=== PATIENT | female | born 1955 | race Caucasian/White ===

== ENCOUNTER → 2016-12-18 | Outpatient (CLI) | payer BC, OTHER ==
[~2016-12-18] MED LIST: AMB5 PO; ATR25 PO; CALCIUM/MAG/ZINC PO; CMDUNK PO; MULT-506 PO; OMEG10007 PO; OXYSRUNK PO; PRCUNK PO; SUPER B COMPLEX PO; SYN88 PO; TOPI100T20 PO; TOPI200T14 PO; TRIPLEFLEX PO; XENICAL PO; XNX25 PO; [UNRECOGNIZED DRUG - OTHER] PO
[2016-12-18 18:10] LABS: BASO % 0.7 %; BASO ABS # 0.05 K/uL (0-0.2); COMPLETE YES; HEMATOCRIT 39.2 % (37-47); IG% 0.1 %; LYMPH % 36.9 %; LYMPH ABS # 2.79 K/uL (1.2-3.4); MEAN CELL VOLUME 82.7 fL (80-100); MEAN CORPUSCULAR HEMOGLOBIN 24.9 pg (25-34); MEAN CORPUSCULAR HGB CONC 30.1 g/dl (32-36); MEAN PLATELET VOLUME 11.5 fL (7.4-10.4); MONO % 9.5 %; NEUT % 50.8 %; PLATELET COUNT 299 K/uL (130-400); RED BLOOD COUNT 4.74 M/uL (4.2-5.4); WHITE BLOOD COUNT 7.57 K/uL (4.8-10.8)
[2016-12-18 18:18] LABS: ALT/SGPT 17 U/L (12-78); AST/SGOT 16 U/L (15-37); BLOOD UREA NITROGEN 15 mg/dl (7-18); BUN/CREATININE RATIO 29.9 (10-20); CALCIUM 8.6 mg/dl (8.5-10.1); CARBON DIOXIDE 29 mmol/L (21-32); CHLORIDE 107 mmol/L (98-107); CREATININE 0.51 mg/dl (0.60-1.20); GLUCOSE 85 mg/dl (70-99); POTASSIUM 4.2 mmol/L (3.5-5.1); SODIUM 143 mmol/L (136-145)
[2016-12-18 18:29] LABS: ALB/GLOB RATIO 0.8 (0.9-2); ALKALINE PHOSPHATASE 67 U/L (45-117)
[2016-12-18 19:04] LABS: LYME DISEASE AB IGM NEG (NEG)
[2016-12-18 19:05] LABS: LYME DISEASE AB IGG NEG (NEG)
== END | disposition home or self-care (01) ==
LOC: C.LABSPEC 17:48
PROVIDERS: ATTEND Family Medicine
DX: E03.9 Hypothyroidism, unspecified (principal)

== ENCOUNTER → 2017-01-22 | Outpatient (CLI) | payer OTHER ==
[2017-01-22 14:07] LABS: HEMATOCRIT 38.9 % (37-47); MEAN CELL VOLUME 81.4 fL (80-100); MEAN CORPUSCULAR HEMOGLOBIN 24.9 pg (25-34); MEAN CORPUSCULAR HGB CONC 30.6 g/dl (32-36); MEAN PLATELET VOLUME 11.2 fL (7.4-10.4); PLATELET COUNT 274 K/uL (130-400); RED BLOOD COUNT 4.78 M/uL (4.2-5.4); WHITE BLOOD COUNT 5.37 K/uL (4.8-10.8)
[2017-01-22 14:42] LABS: BASOPHIL % 1.8 %; LYMPH ABS # 2.59 K/uL (1.2-3.4); LYMPHOCYTE % 48.2 %; NEUTROPHILS % 48.2 %
[2017-01-22 15:07] LABS: ALT/SGPT 19 U/L (12-78); AMYLASE 43 U/L (25-115); AST/SGOT 16 U/L (15-37); BLOOD UREA NITROGEN 12 mg/dl (7-18); BUN/CREATININE RATIO 18.9 (10-20); CALCIUM 8.9 mg/dl (8.5-10.1); CARBON DIOXIDE 27 mmol/L (21-32); CHLORIDE 109 mmol/L (98-107); CREATININE 0.62 mg/dl (0.60-1.20); GLUCOSE 96 mg/dl (70-99); POTASSIUM 4.2 mmol/L (3.5-5.1); SODIUM 143 mmol/L (136-145)
[2017-01-22 15:09] LABS: ALB/GLOB RATIO 0.9 (0.9-2); ALKALINE PHOSPHATASE 74 U/L (45-117)
== END | disposition home or self-care (01) ==
LOC: C.LABSPEC 13:30
PROVIDERS: ATTEND Family Medicine
DX: R10.12 Left upper quadrant pain (principal)

== ENCOUNTER → 2017-07-13 | Outpatient (CLI) | payer OTHER, BC ==
[~2017-07-13] MED LIST changes: -AMB5 PO; -ATR25 PO; -CALCIUM/MAG/ZINC PO; -CMDUNK PO; +LEVO88TA PO; -MULT-506 PO; -OMEG10007 PO; -OXYSRUNK PO; +PANT40TA PO; -PRCUNK PO; -SUPER B COMPLEX PO; -SYN88 PO; -TOPI100T20 PO; -TOPI200T14 PO; -TRIPLEFLEX PO; +TURM1CAP PO; +XANAX PO; -XENICAL PO; -XNX25 PO; -[UNRECOGNIZED DRUG - OTHER] PO
[2017-07-13 18:59] LABS: BASO % 0.6 %; BASO ABS # 0.05 K/uL (0-0.2); EOS % 1.1 %; EOS ABS # 0.09 K/uL (0-0.5); IG# 0.02 K/uL (0.00-0.02); LYMPH % 31.4 %; LYMPH ABS # 2.62 K/uL (1.2-3.4); MEAN CELL VOLUME 74.3 fL (80-100); MEAN CORPUSCULAR HEMOGLOBIN 24.2 pg (25-34); MEAN CORPUSCULAR HGB CONC 32.5 g/dl (32-36); MEAN PLATELET VOLUME 10.8 fL (7.4-10.4); MONO % 9.5 %; MONO ABS # 0.79 K/uL (0.11-0.59); NEUT % 57.2 %; NEUT ABS # 4.78 K/uL (1.4-6.5); PLATELET COUNT 279 K/uL (130-400); RED CELL DISTRIBUTION WIDTH CV 18.6 % (11.5-14.5); RED CELL DISTRIBUTION WIDTH SD 50.6 fL (36.4-46.3); WHITE BLOOD COUNT 8.35 K/uL (4.8-10.8)
[2017-07-13 19:16] LABS: ALBUMIN 3.5 gm/dl (3.4-5.0); ALT/SGPT 38 U/L (12-78); AST/SGOT 28 U/L (15-37); BLOOD UREA NITROGEN 16 mg/dl (7-18); CALCIUM 9.4 mg/dl (8.5-10.1); CARBON DIOXIDE 24 mmol/L (21-32); CREATININE 0.82 mg/dl (0.60-1.20); GLUCOSE 135 mg/dl (70-99); POTASSIUM 3.8 mmol/L (3.5-5.1); SODIUM 139 mmol/L (136-145)
[2017-07-13 19:27] LABS: ALKALINE PHOSPHATASE 85 U/L (45-117)
[2017-07-14 06:42] LABS: HEMOGLOBIN A1C 5.8 % (4.5-5.6)
== END | disposition home or self-care (01) ==
LOC: C.LABSPEC 18:29
PROVIDERS: ATTEND Family Medicine
DX: E03.9 Hypothyroidism, unspecified (principal); R53.83 Other fatigue

== ENCOUNTER → 2017-07-15 | Outpatient (CLI) | payer OTHER, BC ==
[2017-07-15 13:06] LABS: BASO % 0.5 %; BASO ABS # 0.04 K/uL (0-0.2); EOS % 3.4 %; EOS ABS # 0.25 K/uL (0-0.5); HEMATOCRIT 39.4 % (37-47); HEMOGLOBIN 12.8 g/dL (12.0-16.0); IG# 0.02 K/uL (0.00-0.02); LYMPH % 36.3 %; LYMPH ABS # 2.66 K/uL (1.2-3.4); MEAN CELL VOLUME 74.3 fL (80-100); MEAN CORPUSCULAR HEMOGLOBIN 24.2 pg (25-34); MEAN CORPUSCULAR HGB CONC 32.5 g/dl (32-36); MEAN PLATELET VOLUME 10.9 fL (7.4-10.4); MONO % 9.8 %; MONO ABS # 0.72 K/uL (0.11-0.59); NEUT % 49.7 %; NEUT ABS # 3.63 K/uL (1.4-6.5); PLATELET COUNT 292 K/uL (130-400); RED CELL DISTRIBUTION WIDTH CV 18.6 % (11.5-14.5); RED CELL DISTRIBUTION WIDTH SD 50.5 fL (36.4-46.3); WHITE BLOOD COUNT 7.32 K/uL (4.8-10.8)
[2017-07-15 13:23] LABS: BLOOD UREA NITROGEN 19 mg/dl (7-18); CARBON DIOXIDE 23 mmol/L (21-32); GLUCOSE 100 mg/dl (70-99); POTASSIUM 3.5 mmol/L (3.5-5.1); SODIUM 138 mmol/L (136-145)
== END | disposition home or self-care (01) ==
LOC: C.CPL 12:04
PROVIDERS: ATTEND Orthopaedic Surgery
DX: M25.512 Pain in left shoulder (principal)

== ENCOUNTER → 2017-07-30 | Day surgery (SDC) | payer OTHER, BC ==
[2017-07-09 08:52] VITALS: Ht 160 cm; Wt 72.7 kg
[~2017-07-30] VITALS: Ht 160 cm; Wt 72.7 kg
[~2017-07-30] MED LIST changes: +BUPIVACAINE 0.25% 30 ML VIAL ONE; +BUPIVACAINE 0.5 % 5 MG/1 ML MPF 30ML VIAL ONE; +CEFAZOLIN 1000MG IV PUSH 7.5 ML IV SCH; +DEXAMETHASONE SOD INJ 4 MG/ML VIAL ONE; +EpINEphrine INJ 1MG/ML AMP 1 MG/ML AMP ONE; +FENTANYL CITRATE INJ 50 MCG/1 ML 2 ML VIAL ONE; +HYDR-5688 PO; +HYDR25CA PO; +HYDROCODONE/ACETAMIN 5/325MG TAB ONE; +HYDROCODONE/ACETAMIN 5/325MG TAB PO PRN; +KETAMINE HCL INJ 50 MG/ML 10 ML VIAL ONE; +LACTATED RINGER'S 1000ML 1,000 ML IV SCH; +LIDOCAINE HCL 2% 2 ML VIAL (20MG/ML) ONE; +MIDAZOLAM HCL 1 MG/ML 2ML VIAL ONE; +ONDANSETRON INJ 2 MG/ML 2 ML VIAL IV PRN; +POTA550T4; +PROPOFOL IV EMULSION 10 MG/ML 20 ML VIAL IV ONE; +SODIUM CHLORIDE 0.9% 1000ML 1,000 ML IV SCH
--- NOTE | 2017-07-30 10:39 | History & Physical Bridge Note ---
H&P Re-Evaluation Bridge Note: I have examined the patient, reviewed the History & Physical and in the interval since the performance of the History & Physical I have noted the following changes of clinical significance: No changes noted
--- NOTE | 2017-07-30 12:56 | [facility] Post Operative Brief Note ---
Immediate Operative Summary Operative Date Jul 30, 2017. Pre-Operative Diagnosis Left Shoulder Small Rotator Cuff Tear Post-Operative Diagnosis Same Procedure(s) Performed Left Shoulder Arthroscopy With Medium Rotator Cuff Repair, Acromioplasty, Biceps Tenodesis Surgeon Dr. Kim Trolley Collector Surgeon(s) Julian Starr PA-C Estimated Blood Loss 5ml Findings Consistent with Post-Op Diagnosis Specimens None Anesthesia Type MAC Regional Complication(s) none Disposition Disposition: Recovery Room / PACU
[2017-07-30 13:05] VITALS: TEMP 36.6
--- NOTE | 2017-07-30 13:12 | Discharge Instructions-SurgCtr ---
Discharge Instructions Date of Service Jul 30, 2017. Visit Reason for Visit: Left Shoulder Full Thickness Rotator Cuff Tear Discharge Discharge Diagnosis / Problem: SAME ABOVE Discharge Goals Goal(s): Decrease discomfort, Improve function Activity Recommendations Activity Limitations: as noted below Lifting Limitations: until after follow-up appointment Exercise/Sports Limitations: until after follow-up appointment Shower/Bathe: tomorrow Anesthesia . Post Anesthesia Instructions: If you have had General Anesthesia or IV Sedation: * Do not drive today. * Resume driving when surgeon permits. * Do not make important decisions or sign legal documents today. * Call surgeon for: 1. Temperature elevations greater than 101 degrees F. 2. Uncontrollable pain. 3. Excessive bleeding. 4. Persistent nausea and vomiting. 5. Medication intolerance (nausea, vomiting or rash). * For nausea and vomiting use only clear liquids such as: tea, soda, bouillon until nausea subsides, then gradually increase diet as tolerated. * If you have any concerns or questions, call your surgeon's office. If physician is unavailable and it is an emergency, call 911 or go to the nearest emergency room. . Instructions / Follow-Up Instructions / Follow-Up MEDICATIONS: * Resume previous medications unless instructed otherwise by your surgeon. * Always take pain medication on a full stomach or with food to avoid upset stomach. * Do not drink alcohol or drive while taking narcotics. * Ibuprofen or Tylenol may be taken if narcotic not needed. SPECIAL CARE INSTRUCTIONS: __ None _X_ Keep extremity elevated and iced x 48 hours; apply ice 20-30 minutes 8-10 times/day. May remove at night. __ Sling __24 hrs/day __ Remove at night _X_ Shoulder Immobilizer (MAY REMOVE AFTER 48 HOURS ONLY TO SHOWER AND FOR THERAPY) _X_ 24 hrs/day __ Remove at night _X_ Dressing __ Maintain until seen in office, may shower with plastic over site _X_ Remove dressings in 24-48 hours and then may shower _X_ Cover incisions with band-aids after showering __ Do not remove steri-strips Call physician if chills or temperature rises above 102 degrees or pain unrelieved by prescribed pain medications at . . Diet Recommendations Home Diet: no limitations Fluid Restriction: None Procedures Procedures Performed: Left Shoulder Arthroscopy With Medium Rotator Cuff Repair, Acromioplasty, Biceps Tenodesis Pending Studies Studies pending at discharge: no Work Instructions Return To Work: after follow-up Lifting Limitations: NO LIFTING WITH LEFT ARM Medical Emergencies . Who to Call and When: Medical Emergencies: If at any time you feel your situation is an emergency, please call 911 immediately. . Non-Emergent Contact Non-Emergency issues call your: Primary Care Provider Call Non-Emergent contact if: you have a fever, temperature is above 101.5 . . "Provider Documentation" section prepared by Baldev Starr. .
--- NOTE | 2017-07-30 13:21 | Anesthesia Progress Nt - [facility] ---
Anesthesia Post Op Note Date & Time Jul 30, 2017 at 13:21 Vital Signs Pain Intensity: 4 Vital Signs Past 12 Hours Date Time Temp Pulse Resp B/P (MAP) Pulse Ox O2 Delivery O2 Flow Rate FiO2 07/30/17 13:05 36.6 69 16 139/73 (95) 97 Room Air 07/30/17 11:50 74 14 100 07/30/17 11:50 74 07/30/17 11:49 75 07/30/17 11:49 76 19 100 07/30/17 11:48 77 18 100 07/30/17 11:48 77 07/30/17 11:47 80 07/30/17 11:47 76 23 100 07/30/17 11:46 124/67 07/30/17 11:43 67 07/30/17 11:43 68 39 100 07/30/17 11:42 128/59 07/30/17 11:38 58 07/30/17 11:38 59 44 97 07/30/17 11:37 60 07/30/17 11:37 60 0 98 07/30/17 11:36 148/78 07/30/17 11:35 56 0 97 07/30/17 11:35 55 07/30/17 11:32 129/56 07/30/17 11:30 56 0 97 07/30/17 11:30 54 07/30/17 11:26 134/62 07/30/17 11:25 56 0 100 07/30/17 11:25 56 07/30/17 11:20 0 07/30/17 11:15 0 07/30/17 11:10 0 07/30/17 11:05 0 07/30/17 10:46 36.7 57 20 116/78 (91) 97 Room Air Notes Mental Status: alert / awake / arousable, participated in evaluation Pt Amnestic to Procedure: Yes Nausea / Vomiting: adequately controlled Pain: adequately controlled Airway Patency, RR, SpO2: stable & adequate BP & HR: stable & adequate Hydration State: stable & adequate Anesthetic Complications: no major complications apparent Block working well in pacu
[2017-07-30 13:55] VITALS: BP 118/73; O2SAT 100
--- NOTE | 2017-07-30 14:35 | OPERATIVE REPORT ---
DATE OF OPERATION: 07/30/2017 PREOPERATIVE DIAGNOSIS: Medium sized left rotator cuff tear. POSTOPERATIVE DIAGNOSES: Medium sized rotator cuff tear with severe external impingement, biceps tendinopathy. PROCEDURE: Left shoulder diagnostic arthroscopy with limited debridement, distal clavicle resection, acromioplasty, medium size rotator cuff repair and arthroscopic biceps tenodesis. SURGEON: Dr. Ag Kim. INJECTION PRESS OPERATOR: Pelon Starr PA-C, whose assistance was necessary for positioning the arm and help with instrumentation. ANESTHESIA: Sedation with a left interscalene nerve block. COMPLICATIONS: None. CONDITION: Stable to PACU. INDICATIONS: Rocío is a pleasant 61-year-old female who has been having a several month history of left shoulder pain. She denies any trauma. MRI and clinical examination were diagnostic for severe external impingement with medium size cuff tear. After failing conservative treatment, she elected to undergo arthroscopy. DESCRIPTION OF PROCEDURE: On 07/30/2017, she arrived at [facility] for the above procedure. She was seen in preoperative holding and the operative extremity was identified and signed. She was given a preoperative antibiotic and a left interscalene nerve block. She was taken back to the operating room, laid on the table in supine position and given basic sedation. She was then put into the beachchair position. The left shoulder was prepped and draped in sterile fashion. Time-out was done. The patient was properly identified. A scope was introduced in the posterior portal. Diagnostic arthroscopy showed no cartilage damage to the humeral head or glenoid. There was some fraying of the anterior labrum. There was significant fraying of the long head of the biceps tendon. There was a tear of the supraspinatus. The infraspinatus, teres minor, and subscapularis were all checked and intact. An anterior portal was made. A shaver was used to do a limited debridement of the intraarticular structures and the long head of the biceps tendon was arthroscopically tenotomized for later tenodesis. The scope was then put into the subacromial space. A lateral portal was made. A shaver was used to do a complete subacromial and subdeltoid bursectomy. An ablator was used to tease the coracoacromial ligament off the undersurface of the acromion and a 5-0 yoli was used to complete an acromioplasty of a large Bigliani type 3 acromion. A shaver was used to remove any excess debris and attention was turned to the distal clavicle. There were large inferior osteophytes off the undersurface of the clavicle that were impinging upon the supraspinatus outlet. A 5-0 yoli was used to cope co-plane the undersurface of the clavicle. This opened up the supraspinatus outlet. Attention was then turned to the rotator cuff. An additional anterolateral portal was made and Ginger cannulas were placed in each of the lateral portals. The greater tuberosity was prepared with a ring curette and a microfracture. The rotator cuff was then fixed with an Arthrex SpeedBridge configuration using BioComposite SwiveLock suture anchors and FiberTapes. This gave nice fixation. The long head of the biceps tendon was tagged earlier with a FiberLink suture and incorporated into the anterior medial anchor to complete an arthroscopic biceps tenodesis. Multiple pictures were taken. The scope was placed back into the glenohumeral joint and the articular margin of the rotator cuff had been restored. Pictures were taken. Arthroscopic instruments were removed from the shoulder. Portal sites were closed with 3-0 nylon. She was then placed in a soft dressing and an abduction arm sling. She was then extubated, transferred to a litter and taken to the procedure. She carries stable condition. She tolerated the procedure well. I attest to the content of the Intraoperative Record and any orders documented therein. Any exception s are noted below.
== END | disposition home or self-care (01) ==
LOC: X.SURG 10:35
PROVIDERS: ATTEND Orthopaedic Surgery
DX: M75.102 Unspecified rotator cuff tear or rupture of left shoulder, not specified as traumatic (principal); M25.812 Other specified joint disorders, left shoulder; M75.22 Bicipital tendinitis, left shoulder; F32.9 Major depressive disorder, single episode, unspecified; Z82.49 Family history of ischemic heart disease and other diseases of the circulatory system; Z82.3 Family history of stroke; Z80.49 Family history of malignant neoplasm of other genital organs

== ENCOUNTER → 2017-08-31 | Outpatient (CLI) | payer OTHER, BC ==
[~2017-08-31] MED LIST changes: -BUPIVACAINE 0.25% 30 ML VIAL ONE; -BUPIVACAINE 0.5 % 5 MG/1 ML MPF 30ML VIAL ONE; -CEFAZOLIN 1000MG IV PUSH 7.5 ML IV SCH; -DEXAMETHASONE SOD INJ 4 MG/ML VIAL ONE; -EpINEphrine INJ 1MG/ML AMP 1 MG/ML AMP ONE; -FENTANYL CITRATE INJ 50 MCG/1 ML 2 ML VIAL ONE; -HYDROCODONE/ACETAMIN 5/325MG TAB ONE; -HYDROCODONE/ACETAMIN 5/325MG TAB PO PRN; -KETAMINE HCL INJ 50 MG/ML 10 ML VIAL ONE; -LACTATED RINGER'S 1000ML 1,000 ML IV SCH; -LIDOCAINE HCL 2% 2 ML VIAL (20MG/ML) ONE; -MIDAZOLAM HCL 1 MG/ML 2ML VIAL ONE; -ONDANSETRON INJ 2 MG/ML 2 ML VIAL IV PRN; -PROPOFOL IV EMULSION 10 MG/ML 20 ML VIAL IV ONE; -SODIUM CHLORIDE 0.9% 1000ML 1,000 ML IV SCH
== END | disposition home or self-care (01) ==
LOC: C.LABSPEC 17:51
PROVIDERS: ATTEND Family Medicine
DX: R53.83 Other fatigue (principal); F41.1 Generalized anxiety disorder; F41.0 Panic disorder [episodic paroxysmal anxiety]